=== PATIENT | female | born 1940 | race Caucasian/White ===

== ENCOUNTER 2016-11-07 06:57 | Outpatient (CLI) | payer MEDICARE ==
[2016-11-07 07:38] LABS: #Basophils 0.1 thou/uL (0.0-0.2); #Eosinphils 0.2 thou/uL (0.0-0.7); #Lymphocytes 1.8 thou/uL (1.20-3.40); #Monocytes 0.6 thou/uL (0.11-0.59); %Basophils 1.8 % (0.0-1.0); %Eosinophils 3.3 % (0.0-10.0); %Lymphocytes 32.2 % (21.0-51.0); %Monocytes 10.4 % (0.0-10.0); %Neutrophils 52.4 % (42.0-75.0); Hemoglobin 16.5 g/dL (12.0-16.0); Mean Corpuscular HGB CONC 32.2 g/dL (32.0-36.0); Mean Corpuscular Hemoglobin 31.5 pg (27.0-31.0); Mean Corpuscular Volume 97.6 fl (81.0-99.0); Mean Platelet Volume 8.2 fL (7.4-10.4); Platelet Count 211 thou/uL (130-400); RBC Distribution Width 12.9 % (11.5-14.5); Red Blood Cell (RBC) Count 5.25 mill/uL (4.20-5.40); White Blood Cell (WBC) Count 5.7 thou/uL (4.8-10.8)
[2016-11-07 07:52] LABS: ALT (SGPT) 8 U/L (0-55); AST (SGOT) 16 U/L (5-34); Albumin 3.7 g/dL (3.4-4.8); Alkaline Phosphatase 89 U/L (40-150); Anion Gap 11 mmol/L (10-20); BUN (Urea Nitrogen) 16 mg/dL (9.8-20.1); Bilirubin, Total 0.9 mg/dL (0.2-1.2); Calc. Creatinine Clearance 0 mL/min (70-130); Calcium 9.5 mg/dL (7.8-10.44); Carbon Dioxide 31 mmol/L (23-31); Cardiac Risk 3.2 (Less than 4.5); Chloride 102 mmol/L (98-107); Cholesterol 193 mg/dL (< 200 Desired); Estimated GFR-MDRD 60; Globulin 2.5 g/dL (2.4-3.5); Glucose 91 mg/dL (83-110); HDL Cholesterol 60 mg/dL (>60 Neg Risk); LDL Cholesterol, Calculated 113 mg/dL; Protein, Total 6.2 g/dL (5.8-8.1); Sodium 140 mmol/L (136-145); Triglycerides 100 mg/dL (Less than 150)
== END 2016-11-07 06:58 ==
LOC: MADLABBHPM 06:57
PROVIDERS: ATTEND Family Medicine
DX: E03.9 Hypothyroidism, unspecified (principal); I25.10 Atherosclerotic heart disease of native coronary artery without angina pectoris; I10 Essential (primary) hypertension
CPT/HCPCS: 36415; 80053; 80061; 84443; 85025

== ENCOUNTER 2016-12-10 13:36 | Outpatient (CLI) | payer MEDICARE ==
[2016-12-10 14:22] LABS: Free T4 (Free Thyroxine) 1.09 ng/dL (0.70-1.48)
[2016-12-10 17:54] LABS: Free T3 2.54 pg/mL (1.71-3.71)
== END 2016-12-10 13:37 | disposition home or self-care (01) ==
LOC: MADLAB 13:36
PROVIDERS: ATTEND Specialist
DX: E03.9 Hypothyroidism, unspecified (principal); E03.4 Atrophy of thyroid (acquired)
CPT/HCPCS: 36415; 84439; 84481

== ENCOUNTER 2017-01-06 06:36 | Emergency (ER) | payer MEDICARE ==
[2017-01-06] MEDS ORDERED: Fentanyl 100 MCG/2 ML VIAL ONE (07:15)
[2017-01-06] MEDS ORDERED: Ondansetron HCl/PF 4 MG/2 ML Vial ONE (07:16)
[2017-01-06 07:23] LABS: #Eosinphils 0.1 thou/uL (0.0-0.7); #Lymphocytes 0.5 thou/uL (1.20-3.40); #Monocytes 0.3 thou/uL (0.11-0.59); #Neutrophils 9.4 thou/uL (1.40-6.50); %Basophils 0.4 % (0.0-1.0); %Eosinophils 0.8 % (0.0-10.0); %Lymphocytes 4.5 % (21.0-51.0); %Monocytes 2.5 % (0.0-10.0); %Neutrophils 91.8 % (42.0-75.0); Hemoglobin 16.6 g/dL (12.0-16.0); Mean Corpuscular HGB CONC 31.8 g/dL (32.0-36.0); Mean Corpuscular Hemoglobin 30.9 pg (27.0-31.0); Mean Corpuscular Volume 97.2 fl (81.0-99.0); Mean Platelet Volume 7.8 fL (7.4-10.4); Platelet Count 207 thou/uL (130-400); RBC Distribution Width 13.2 % (11.5-14.5); Red Blood Cell (RBC) Count 5.38 mill/uL (4.20-5.40); White Blood Cell (WBC) Count 10.2 thou/uL (4.8-10.8)
[2017-01-06 07:35] LABS: ALT (SGPT) 14 U/L (0-55); AST (SGOT) 18 U/L (5-34); Albumin 3.7 g/dL (3.4-4.8); Alkaline Phosphatase 84 U/L (40-150); Anion Gap 13 mmol/L (10-20); BUN (Urea Nitrogen) 16 mg/dL (9.8-20.1); Bilirubin, Total 1.2 mg/dL (0.2-1.2); Calc. Creatinine Clearance 0 mL/min (70-130); Calcium 9.3 mg/dL (7.8-10.44); Carbon Dioxide 26 mmol/L (23-31); Chloride 104 mmol/L (98-107); Estimated GFR-MDRD 63; Globulin 2.5 g/dL (2.4-3.5); Glucose 115 mg/dL (83-110); Lipase 34 U/L (8-78); Potassium 4.5 mmol/L (3.5-5.1); Protein, Total 6.2 g/dL (5.8-8.1); Sodium 138 mmol/L (136-145)
[2017-01-06] MEDS ORDERED: Sodium Chloride 0.9% 1,000 ML BAG ONE (09:16)
== END 2017-01-06 08:25 | disposition home or self-care (01) ==
LOC: MADERS 06:36
DX: R11.2 Nausea with vomiting, unspecified (principal); R19.7 Diarrhea, unspecified; E78.5 Hyperlipidemia, unspecified; I10 Essential (primary) hypertension; F17.210 Nicotine dependence, cigarettes, uncomplicated; Z79.82 Long term (current) use of aspirin; Z79.899 Other long term (current) drug therapy
CPT/HCPCS: 36415; 80053; 83690; 85025; 96361; 96374; 96375; J2405; J3010; J7050

== ENCOUNTER 2017-01-07 18:40 | Emergency (ER) | payer MEDICARE ==
[~2017-01-07 18:40] MED LIST: Sodium Chloride 0.9% 1,000 ML BAG ONE; Sodium Chloride 0.9% 100 ML BAG ONE
[2017-01-07] MEDS ORDERED: Ondansetron HCl/PF 4 MG/2 ML Vial ONE (19:51)
[2017-01-07 19:52] LABS: Band 1 % (5-11); Eosinophils 3 % (0-10); Lymphocytes 9 % (21-51); MDiff Complete? YES; Mean Corpuscular HGB CONC 32.8 g/dL (32.0-36.0); Mean Corpuscular Hemoglobin 31.5 pg (27.0-31.0); Mean Corpuscular Volume 96.2 fl (81.0-99.0); Mean Platelet Volume 7.9 fL (7.4-10.4); Monocytes 4 % (0-10); Neutrophil 74 % (42-75); PLT Morphology Comment Appears Adequate; Platelet Count 193 thou/uL (130-400); RBC Distribution Width 12.8 % (11.5-14.5); RBC Morphology Normal; Reactive Lymphocytes 9 % (0-10); Red Blood Cell (RBC) Count 5.07 mill/uL (4.20-5.40); White Blood Cell (WBC) Count 4.2 thou/uL (4.8-10.8)
[2017-01-07 19:54] LABS: ALT (SGPT) 18 U/L (0-55); AST (SGOT) 28 U/L (5-34); Albumin 3.4 g/dL (3.4-4.8); Alkaline Phosphatase 76 U/L (40-150); Anion Gap 13 mmol/L (10-20); BUN (Urea Nitrogen) 14 mg/dL (9.8-20.1); Bilirubin, Total 0.7 mg/dL (0.2-1.2); Calc. Creatinine Clearance 0 mL/min (70-130); Calcium 8.9 mg/dL (7.8-10.44); Carbon Dioxide 26 mmol/L (23-31); Chloride 102 mmol/L (98-107); Estimated GFR-MDRD 55; Globulin 2.4 g/dL (2.4-3.5); Glucose 94 mg/dL (83-110); Lipase 17 U/L (8-78); Protein, Total 5.8 g/dL (5.8-8.1); Sodium 137 mmol/L (136-145)
[2017-01-07 19:55] LABS: CKMB 4.3 ng/mL (0-6.6); Troponin I 0.035 ng/mL (< 0.028)
[2017-01-07 21:28] LABS: Bilirubin Negative (Negative); Blood, Urine Negative (Negative); Clarity Clear (Clear); Glucose, Urine (Dipstick) Negative (Negative); Leukocyte Negative (Negative); Nitrite Negative (Negative); Protein, Urine (Dipstick) Negative (Neg-Trace); Urobilinogen 0.2 mg/dL (0.2-1.0); pH, Urine 5.5 (5.0-9.0)
[2017-01-07] MEDS ORDERED: Pantoprazole 40 MG VIAL ONE (21:34)
[2017-01-07] MEDS ORDERED: Piperacillin/Tazobactam 3.375 GM VIAL ONE (21:34)
--- NOTE | 2017-01-07 21:55 | RAD ---
KUB AND UPRIGHT: 01/07/17 HISTORY: Abdominal pain. COMPARISON: Chest x-ray of 08/29/16. There is air in both small and large bowel without definite obstruction. No free air. Postop cholecy stectomy changes are seen. PA CHEST: Heart size is enlarged. There are chronic lung changes seen. Pleural and parenchymal changes in the right apex are stable. IMPRESSION: No acute findings. POS: [facility]
== END 2017-01-08 00:05 | disposition short-term general hospital (02) ==
LOC: MADERS 18:40
DX: I25.10 Atherosclerotic heart disease of native coronary artery without angina pectoris (principal); R10.9 Unspecified abdominal pain; R19.7 Diarrhea, unspecified; E78.5 Hyperlipidemia, unspecified; I10 Essential (primary) hypertension; F17.210 Nicotine dependence, cigarettes, uncomplicated; Z79.899 Other long term (current) drug therapy; Z79.82 Long term (current) use of aspirin
CPT/HCPCS: 36415; 51701; 74022; 80053; 81003; 82553; 83690; 84484; 85025; 93005; 96361; 96365; 96375; 96376; A4353; C9113; J2270; J2405; J2543; J7050

== ENCOUNTER 2017-01-24 20:06 | Emergency (ER) | payer MEDICARE ==
[2017-01-24] MEDS ORDERED: cloNIDine HCl 0.1 MG TAB ONE (21:26)
== END 2017-01-24 22:05 | disposition home or self-care (01) ==
LOC: MADERS 20:06
DX: I10 Essential (primary) hypertension (principal); I25.2 Old myocardial infarction; E78.5 Hyperlipidemia, unspecified; J42 Unspecified chronic bronchitis; F17.210 Nicotine dependence, cigarettes, uncomplicated; Z79.82 Long term (current) use of aspirin; Z79.899 Other long term (current) drug therapy
CPT/HCPCS: 99283

== ENCOUNTER 2017-02-07 07:21 | Outpatient (CLI) | payer MEDICARE ==
[2017-02-07 08:34] LABS: #Basophils 0.1 thou/uL (0.0-0.2); #Eosinphils 0.3 thou/uL (0.0-0.7); #Lymphocytes 1.6 thou/uL (1.20-3.40); #Monocytes 0.6 thou/uL (0.11-0.59); #Neutrophils 3.9 thou/uL (1.40-6.50); %Basophils 1.4 % (0.0-1.0); %Lymphocytes 23.9 % (21.0-51.0); %Monocytes 9.1 % (0.0-10.0); %Neutrophils 60.6 % (42.0-75.0); Hemoglobin 16.8 g/dL (12.0-16.0); Mean Corpuscular HGB CONC 32.8 g/dL (32.0-36.0); Mean Corpuscular Volume 97.6 fl (81.0-99.0); Mean Platelet Volume 8.7 fL (7.4-10.4); Platelet Count 203 thou/uL (130-400); RBC Distribution Width 13.5 % (11.5-14.5); Red Blood Cell (RBC) Count 5.26 mill/uL (4.20-5.40); White Blood Cell (WBC) Count 6.5 thou/uL (4.8-10.8)
[2017-02-07 08:58] LABS: ALT (SGPT) 11 U/L (8-55); AST (SGOT) 17 U/L (5-34); Albumin 3.7 g/dL (3.4-4.8); Alkaline Phosphatase 96 U/L (40-150); Anion Gap 14 mmol/L (10-20); BUN (Urea Nitrogen) 11 mg/dL (9.8-20.1); Calc. Creatinine Clearance 0 mL/min (70-130); Calcium 9.6 mg/dL (7.8-10.44); Carbon Dioxide 28 mmol/L (23-31); Cardiac Risk 3.3 (Less than 4.5); Chloride 104 mmol/L (98-107); Cholesterol 194 mg/dl (< 200 Desired); Estimated GFR-MDRD 67; Globulin 2.8 g/dL (2.4-3.5); Glucose 88 mg/dL (83-110); HDL Cholesterol 59 mg/dL (>60 Neg Risk); LDL Cholesterol, Calculated 111 mg/dL; Protein, Total 6.5 g/dL (6.0-8.3); Sodium 142 mmol/L (136-145); Triglycerides 118 mg/dL (Less than 150)
== END 2017-02-07 07:22 ==
LOC: MADLABBHPM 07:21
PROVIDERS: ATTEND Family Medicine
DX: E03.9 Hypothyroidism, unspecified (principal); I25.10 Atherosclerotic heart disease of native coronary artery without angina pectoris
CPT/HCPCS: 80053; 80061; 84443; 85025

== ENCOUNTER 2017-10-16 15:30 | Emergency (ER) | payer MEDICARE ==
[2017-10-16] MEDS ORDERED: Amoxicillin/Potassium Clav 875 MG TAB ONE (16:13)
== END 2017-10-16 16:20 | disposition home or self-care (01) ==
LOC: MADERS 15:30
DX: J20.9 Acute bronchitis, unspecified (principal); Z79.899 Other long term (current) drug therapy; Z79.82 Long term (current) use of aspirin
CPT/HCPCS: 99283

== ENCOUNTER 2019-02-08 20:07 | Emergency (ER) | payer MEDICARE ==
[2019-02-08] MEDS ORDERED: Nitroglycerin 2% Ointment 1 INCH/1 GM Packet ONE (20:27)
[2019-02-08 20:31] LABS: #Basophils 0.1 thou/uL (0.0-0.2); #Eosinphils 0.2 thou/uL (0.0-0.7); #Lymphocytes 1.6 thou/uL (1.20-3.40); #Monocytes 0.9 thou/uL (0.11-0.59); #Neutrophils 5.5 thou/uL (1.40-6.50); %Basophils 1.5 % (0.0-1.0); %Eosinophils 2.3 % (0.0-10.0); %Lymphocytes 19.1 % (21.0-51.0); %Monocytes 10.7 % (0.0-10.0); %Neutrophils 66.4 % (42.0-75.0); Hemoglobin 16.8 g/dL (12.0-16.0); Mean Corpuscular HGB CONC 32.3 g/dL (32.0-36.0); Mean Corpuscular Hemoglobin 30.9 pg (27.0-31.0); Mean Corpuscular Volume 95.5 fL (78.0-98.0); Mean Platelet Volume 7.6 fL (7.4-10.4); Platelet Count 217 thou/uL (130-400); RBC Distribution Width 13.1 % (11.5-14.5); Red Blood Cell (RBC) Count 5.44 mill/uL (4.20-5.40); White Blood Cell (WBC) Count 8.3 thou/uL (4.8-10.8)
--- NOTE | 2019-02-08 20:48 | RAD ---
AP view chest. HISTORY: Chest pain AP view chest demonstrates sternotomy wires seen. Calcination of the aorta seen. The lungs are well a erated. Right-sided rib fractures seen. No evidence of acute intrathoracic abnormality seen. IMPRESSION: Calcination of the aorta.
[2019-02-08 20:49] LABS: ALT (SGPT) 11 U/L (8-55); AST (SGOT) 17 U/L (5-34); Albumin 3.8 g/dL (3.4-4.8); Alkaline Phosphatase 104 U/L (40-150); Anion Gap 12 mmol/L (10-20); BUN (Urea Nitrogen) 21 mg/dL (9.8-20.1); Bilirubin, Total 0.6 mg/dL (0.2-1.2); Calc. Creatinine Clearance 0 mL/min (70-130); Calcium 9.5 mg/dL (7.8-10.44); Carbon Dioxide 28 mmol/L (23-31); Chloride 101 mmol/L (98-107); Estimated GFR-MDRD 30; Globulin 3.2 g/dL (2.4-3.5); Glucose 100 mg/dL (83-110); Magnesium 1.9 mg/dL (1.6-2.6); Potassium 4.4 mmol/L (3.5-5.1); Sodium 137 mmol/L (136-145)
== END 2019-02-08 22:47 | disposition left against medical advice (07) ==
LOC: MADERS 20:07
DX: I20.0 Unstable angina (principal); I10 Essential (primary) hypertension; Z79.51 Long term (current) use of inhaled steroids; Z79.899 Other long term (current) drug therapy; Z79.82 Long term (current) use of aspirin
CPT/HCPCS: 71045; 80053; 83735; 83880; 84484; 85025; 93005

== ENCOUNTER 2020-01-11 14:31 | Emergency (ER) | payer MEDICARE ==
[~2020-01-11 14:31] MED LIST changes: +Iopamidol 370 76% 125 ML VIAL FS ONE; -Sodium Chloride 0.9% 1,000 ML BAG ONE; -Sodium Chloride 0.9% 100 ML BAG ONE
[2020-01-11 15:51] LABS: #Basophils 0.1 thou/uL (0.0-0.2); #Lymphocytes 1.1 thou/uL (1.20-3.40); #Monocytes 0.4 thou/uL (0.11-0.59); #Neutrophils 4.8 thou/uL (1.40-6.50); %Basophils 1.2 % (0.0-1.0); %Eosinophils 0.7 % (0.0-10.0); %Lymphocytes 17.1 % (21.0-51.0); %Monocytes 5.9 % (0.0-10.0); %Neutrophils 75.1 % (42.0-75.0); Hemoglobin 17.1 g/dL (12.0-16.0); Mean Corpuscular HGB CONC 31.3 g/dL (32.0-36.0); Mean Corpuscular Hemoglobin 30.6 pg (27.0-31.0); Mean Corpuscular Volume 97.9 fL (78.0-98.0); Mean Platelet Volume 7.9 fL (7.4-10.4); Platelet Count 230 thou/uL (130-400); RBC Distribution Width 12.8 % (11.5-14.5); Red Blood Cell (RBC) Count 5.57 mill/uL (4.20-5.40); White Blood Cell (WBC) Count 6.4 thou/uL (4.8-10.8)
[2020-01-11 16:00] LABS: INR-International Normal Ratio 0.9; Prothrombin Time 12.5 SEC (12.0-14.7)
[2020-01-11 16:11] LABS: ALT (SGPT) 12 U/L (8-55); AST (SGOT) 20 U/L (5-34); Albumin 3.8 g/dL (3.4-4.8); Alkaline Phosphatase 95 U/L (40-110); Anion Gap 18 mmol/L (10-20); BUN (Urea Nitrogen) 15 mg/dL (9.8-20.1); Calc. Creatinine Clearance 0 mL/min (70-130); Calcium 9.5 mg/dL (7.8-10.44); Carbon Dioxide 27 mmol/L (23-31); Chloride 97 mmol/L (98-107); Estimated GFR-MDRD 46; Globulin 2.9 g/dL (2.4-3.5); Glucose 100 mg/dL (83-110); Potassium 4.7 mmol/L (3.5-5.1); Protein, Total 6.7 g/dL (6.0-8.3); Sodium 137 mmol/L (136-145)
--- NOTE | 2020-01-11 17:18 | CT ---
CT BRAIN 01/11/20 PROVIDED CLINICAL HISTORY: Dizziness. FINDINGS: No comparisons. The ventricular system appears normal in size and morphology. There is no evidence for intracranial h emorrhage, or mass effect. Vascular calcifications are seen. The extra-cranial soft tissues and osse ous structures demonstrate no acute abnormality. IMPRESSION: No evidence for intracranial hemorrhage or mass effect. POS: [facility]
[2020-01-11] MEDS ORDERED: Meclizine HCl 25 MG TAB ONE ×2 (17:22→17:40)
[2020-01-11] MEDS ORDERED: Sodium Chloride 0.9% 500 ML ONE (17:22)
--- NOTE | 2020-01-11 17:40 | CT ---
CTA HEAD WITH CONTRAST 01/11/20 Axial tomograms obtained through the head following a cerebral angio protocol with multiplanar recons truction and 3D postprocessing. INDICATION: Dizziness. FINDINGS: The intracranial internal carotid arteries are patent. There is atherosclerotic calcifications seen i n the cavernous portions of both ICAs. 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 There is no secondary evidence of carotid cavernous fistula. The bilateral carotid terminus appears symmetric. Both middle cerebral arteries are patent and symmet mark. Anterior cerebral arteries are patent and symmetric. Basilar artery is tortuous but patent. Atherosclerotic calcifications are present. Both posterior cer ebral arteries appear patent and symmetric. IMPRESSION: 1. 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 There is no se condary evidence of a carotid cavernous fistula identified. Recommend clinical correlation and consid er a catheter angiogram to further evaluate. 2. There is no evidence of proximal cerebral artery stenosis or occlusion. CTA NECK: Axial tomograms obtained with multiplanar reconstruction and 3D postprocessing. INDICATIONS: Dizziness. FINDINGS: Atherosclerotic calcification at the arch at the origin of the arch vessels without evidence of steno sis. Both common carotid arteries are patent. There is moderate atherosclerotic change in the right c ommon carotid without hemodynamically significant stenosis. Atherosclerotic calcification is seen in both bulbs. No evidence of hemodynamically significant steno sis seen in either internal carotid artery. The vertebral arteries are patent and symmetric. Review of soft tissues reveal asymmetric pleural thickening and density in the right lung apex. Consi sunny elective follow-up CT chest to further evaluate. There appear to be severe chronic lung changes i n the visualized lung parenchyma in the upper lung [place]. IMPRESSION: 1. Atherosclerotic changes seen in both extracranial carotid arteries without evidence of hemody namically significant stenosis. 2. No evidence of significant chronic lung changes with asymmetric pleural thickening in the rig ht apex. Refer to recent CT chest exam of 01/11/20. POS: [facility]
[2020-01-11 17:42] LABS: Bilirubin Negative (Negative); Blood, Urine Negative (Negative); Clarity Clear (Clear); Glucose, Urine (Dipstick) Negative (Negative); Leukocyte Negative (Negative); Nitrite Negative (Negative); Protein, Urine (Dipstick) Negative (Neg-Trace); Urobilinogen 0.2 mg/dL (Less than 2)
[2020-01-11] MEDS ORDERED: Ondansetron PF 4 MG/2 ML Vial ONE (18:18)
== END 2020-01-11 18:25 | disposition home or self-care (01) ==
LOC: MADERS 14:31
DX: R42 Dizziness and giddiness (principal); R11.0 Nausea; R53.1 Weakness; I10 Essential (primary) hypertension; Z79.82 Long term (current) use of aspirin; Z79.899 Other long term (current) drug therapy
CPT/HCPCS: 70450; 70496; 70498; 80053; 81003; 85025; 85610; 93005; 96361; 96374; J2405; J7030; Q9967

== ENCOUNTER 2020-10-19 22:42 | Emergency (ER) | payer MEDICARE ==
[2020-10-19] MEDS ORDERED: Nitroglycerin 2% Ointment 1 INCH/1 GM Packet ONE (23:12)
[2020-10-19] MEDS ORDERED: methylPREDNISolone Sod Succ/PF 125 MG/2 ML VIAL ONE (23:12)
[2020-10-19] MEDS ORDERED: Aspirin Chewable 81 MG TAB ONE (23:12)
[2020-10-19 23:13] LABS: #Basophils 0.1 thou/uL (0.0-0.2); #Eosinphils 0.2 thou/uL (0.0-0.7); #Lymphocytes 1.1 thou/uL (1.20-3.40); #Monocytes 0.6 thou/uL (0.11-0.59); #Neutrophils 4.9 thou/uL (1.40-6.50); %Basophils 1.5 % (0.0-1.0); %Eosinophils 3.5 % (0.0-10.0); %Lymphocytes 15.8 % (21.0-51.0); %Monocytes 9.1 % (0.0-10.0); %Neutrophils 70.1 % (42.0-75.0); Hemoglobin 17.1 g/dL (12.0-16.0); Mean Corpuscular HGB CONC 31.8 g/dL (32.0-36.0); Mean Corpuscular Hemoglobin 30.6 pg (27.0-31.0); Mean Corpuscular Volume 96.2 fL (78.0-98.0); Mean Platelet Volume 7.9 fL (7.4-10.4); Platelet Count 237 thou/uL (130-400); RBC Distribution Width 12.2 % (11.5-14.5); Red Blood Cell (RBC) Count 5.58 mill/uL (4.20-5.40); White Blood Cell (WBC) Count 6.9 thou/uL (4.8-10.8)
[2020-10-19 23:24] LABS: ALT (SGPT) 11 U/L (8-55); AST (SGOT) 16 U/L (5-34); Albumin 3.7 g/dL (3.4-4.8); Alkaline Phosphatase 91 U/L (40-110); Anion Gap 14 mmol/L (10-20); BUN (Urea Nitrogen) 16 mg/dL (9.8-20.1); Bilirubin, Total 0.6 mg/dL (0.2-1.2); Calc. Creatinine Clearance 0 mL/min (70-130); Calcium 9.2 mg/dL (7.8-10.44); Carbon Dioxide 31 mmol/L (23-31); Chloride 99 mmol/L (98-107); Globulin 2.7 g/dL (2.4-3.5); Glucose 96 mg/dL (83-110); Potassium 4.1 mmol/L (3.5-5.1); Protein, Total 6.4 g/dL (5.8-8.1); Sodium 140 mmol/L (136-145)
--- NOTE | 2020-10-19 23:54 | RAD ---
EXAM: CHEST ONE VIEW HISTORY: Dyspnea. History of lung cancer. Partial right lung removal. History of breast cancer and bilateral m astectomy COMPARISON: 02/08/2019 FINDINGS: Postoperative changes related to median sternotomy are seen. Surgical clips are seen overlying the ri ght paramediastinal location similar to prior exam. The cardiac silhouette is magnified by projection. Vascular calcifications are seen in the thoracic aorta. Pulmonary nodule is seen within the left midlung zone which was seen on CT thorax on 08/24/2020. No a dditional pulmonary nodule is appreciated. Left lung is otherwise clear. There is evidence of postoperative changes right hemithorax with rib deformities and generalized volu me loss right hemithorax related to history of prior right lobectomy. Prominent pleural and parenchymal scarring right lung apex and right lung base are again seen findings could be related to combination of postoperative and postradiation changes. No other interval change. IMPRESSION: 1. Pulmonary nodule left midlung zone seen on prior CT thorax. 2. Stable chronic changes right hemithorax likely related to postoperative changes and possibly postr adiation changes.
[2020-10-20 00:44] LABS: SARS-CoV-2 NAA Rapid Test Not Detected (NotDetected)
== END 2020-10-20 01:15 | disposition short-term general hospital (02) ==
LOC: MADERS 22:42
DX: J44.1 Chronic obstructive pulmonary disease with (acute) exacerbation (principal); R07.9 Chest pain, unspecified; R79.1 Abnormal coagulation profile; C34.90 Malignant neoplasm of unspecified part of unspecified bronchus or lung; I10 Essential (primary) hypertension; F17.200 Nicotine dependence, unspecified, uncomplicated; Z79.82 Long term (current) use of aspirin; Z79.899 Other long term (current) drug therapy
CPT/HCPCS: 71045; 80053; 83880; 84484; 85025; 85379; 93005; 94640; 94760; 96374; J2930; J7620; U0002

== ENCOUNTER 2020-11-06 11:01 | Emergency (ER) | payer MEDICARE | END 2020-11-06 12:30 | disposition home or self-care (01) | LOC: MADERS 11:01 | DX: I82.621 Acute embolism and thrombosis of deep veins of right upper extremity (principal); I10 Essential (primary) hypertension; J44.9 Chronic obstructive pulmonary disease, unspecified; Z85.118 Personal history of other malignant neoplasm of bronchus and lung; Z85.3 Personal history of malignant neoplasm of breast; Z79.82 Long term (current) use of aspirin; Z79.899 Other long term (current) drug therapy | CPT/HCPCS: 99283 ==

== ENCOUNTER 2020-11-15 18:43 | Emergency (ER) | payer MEDICARE ==
[2020-11-15 19:21] LABS: #Basophils 0.1 thou/uL (0.0-0.2); #Eosinphils 0.2 thou/uL (0.0-0.7); #Monocytes 0.7 thou/uL (0.11-0.59); #Neutrophils 4.6 thou/uL (1.40-6.50); %Basophils 1.5 % (0.0-1.0); %Eosinophils 2.8 % (0.0-10.0); %Lymphocytes 15.7 % (21.0-51.0); Hemoglobin 17.4 g/dL (12.0-16.0); Mean Corpuscular HGB CONC 32.2 g/dL (32.0-36.0); Mean Corpuscular Hemoglobin 31.2 pg (27.0-31.0); Mean Corpuscular Volume 96.9 fL (78.0-98.0); Mean Platelet Volume 7.4 fL (7.4-10.4); Platelet Count 234 thou/uL (130-400); RBC Distribution Width 12.7 % (11.5-14.5); Red Blood Cell (RBC) Count 5.59 mill/uL (4.20-5.40); White Blood Cell (WBC) Count 6.6 thou/uL (4.8-10.8)
[2020-11-15 19:23] LABS: INR-International Normal Ratio 1.2; PTT 31.3 sec (22.9-36.1); Prothrombin Time 15.2 sec (12.0-14.7)
[2020-11-15 19:25] LABS: D-Dimer Test 0.56 *mcg/mL (0.27-0.43)
[2020-11-15 19:35] LABS: ALT (SGPT) 10 U/L (8-55); AST (SGOT) 16 U/L (5-34); Albumin 3.8 g/dL (3.4-4.8); Alkaline Phosphatase 100 U/L (40-110); Anion Gap 14 mmol/L (10-20); BUN (Urea Nitrogen) 17 mg/dL (9.8-20.1); Bilirubin, Total 0.8 mg/dL (0.2-1.2); Calc. Creatinine Clearance 0 mL/min (70-130); Calcium 9.3 mg/dL (7.8-10.44); Carbon Dioxide 27 mmol/L (23-31); Chloride 98 mmol/L (98-107); Globulin 2.7 g/dL (2.4-3.5); Glucose 101 mg/dL (83-110); Potassium 4.3 mmol/L (3.5-5.1); Protein, Total 6.5 g/dL (5.8-8.1); Sodium 135 mmol/L (136-145)
--- NOTE | 2020-11-15 21:07 | CT ---
CT PULMONARY ANGIOGRAM WITH IV CONTRAST AND 3-D POSTPROCESSING: HISTORY:Right lung cancer. Dyspnea COMPARISON: CT chest dated 08/24/2020 FINDINGS: There is good contrast opacification of the pulmonary arterial vasculature without filling defects to suggest pulmonary embolism. The thoracic aorta is ectatic and well opacified without aneurysm or dissection. Vascular calcificati ons are present. No pleural or pericardial effusions are seen. There is stable scarring in the right lung apex with peripheral pleural thickening. Emphysematous daljit nges in the lung [place] are again seen. No pneumothoraces, new areas of consolidation or new lung nodules are noted. 15 mm left upper lobe lung nodule is stable. Calcified granulomas again seen. There are degenerative changes in the spine. Old right-sided rib fractures again seen. Upper abdominal tomograms demonstrate changes of cholecystectomy. IMPRESSION: No CT evidence of pulmonary embolism.
[2020-11-15 21:31] LABS: Bilirubin Negative (Negative); Blood, Urine Negative (Negative); Clarity Clear (Clear); Glucose, Urine (Dipstick) Negative (Negative); Ketone, Urine Negative (Negative); Leukocyte Negative (Negative); Nitrite Negative (Negative); Protein, Urine (Dipstick) Negative (Neg-Trace); Specific Gravity, Urine 1.015 (1.005-1.030)
[2020-11-15] MEDS ORDERED: cefTRIAXone\\ROCEPHIN 2 GM VIAL ONE (21:43)
[2020-11-15] MEDS ORDERED: methylPREDNISolone Sod Succ/PF 125 MG/2 ML VIAL ONE (22:00)
[2020-11-15 23:28] LABS: SARS-CoV-2 NAA Rapid Test Not Detected (NotDetected)
== END 2020-11-15 23:56 | disposition short-term general hospital (02) ==
LOC: MADERS 18:43
DX: J44.1 Chronic obstructive pulmonary disease with (acute) exacerbation (principal); I10 Essential (primary) hypertension; F17.200 Nicotine dependence, unspecified, uncomplicated; Z85.118 Personal history of other malignant neoplasm of bronchus and lung; Z79.82 Long term (current) use of aspirin; Z79.899 Other long term (current) drug therapy; Z79.01 Long term (current) use of anticoagulants
CPT/HCPCS: 0240U; 71275; 80053; 81003; 83605; 83880; 84484; 85025; 85379; 85610; 85730; 87040; 93005; 94760; 36415; 96374; 96375; J0696; J2930; J7620; Q9967

== ENCOUNTER 2021-09-07 22:07 | Emergency (ER) | payer MEDICARE ==
[2021-09-07] MEDS ORDERED: Orphenadrine Citrate 60 MG/2 ML VIAL ONE (22:44)
[2021-09-07] MEDS ORDERED: Ketorolac Tromethamine 30 MG/ML VIAL ONE (22:44)
== END 2021-09-08 00:08 | disposition home or self-care (01) ==
LOC: MADERS 22:07
DX: S29.012A Strain of muscle and tendon of back wall of thorax, initial encounter (principal); J44.9 Chronic obstructive pulmonary disease, unspecified; I10 Essential (primary) hypertension; Z87.891 Personal history of nicotine dependence; Z79.82 Long term (current) use of aspirin; Z79.899 Other long term (current) drug therapy
CPT/HCPCS: 71045; 96372; J1885; J2360

== ENCOUNTER 2021-09-09 21:20 | Emergency (ER) | payer MEDICARE ==
[2021-09-09] MEDS ORDERED: Morphine 4 MG/ML VIAL ONE (22:12)
[2021-09-09] MEDS ORDERED: Ketorolac Tromethamine 30 MG/ML VIAL ONE (22:12)
[2021-09-09] MEDS ORDERED: Dexamethasone 4 MG TAB ONE (23:18)
[2021-09-09] MEDS ORDERED: Diazepam 5 MG TAB ONE (23:18)
== END 2021-09-09 23:28 | disposition home or self-care (01) ==
LOC: MADERS 21:20
DX: M62.830 Muscle spasm of back (principal); J44.9 Chronic obstructive pulmonary disease, unspecified; I10 Essential (primary) hypertension; Z87.891 Personal history of nicotine dependence; Z79.82 Long term (current) use of aspirin; Z79.899 Other long term (current) drug therapy
CPT/HCPCS: 74176; 96372; J1885; J2270; J8540

== ENCOUNTER 2021-10-29 12:10 | Outpatient (CLI) | payer MEDICARE ==
[2021-10-29] MEDS ORDERED: Iopamidol 370 76% 100 ML VIAL ONE (13:33)
== END 2021-10-29 12:11 | disposition home or self-care (01) ==
LOC: MADCT 12:10
PROVIDERS: ATTEND Family Medicine
DX: C34.90 Malignant neoplasm of unspecified part of unspecified bronchus or lung (principal); R10.9 Unspecified abdominal pain; C79.51 Secondary malignant neoplasm of bone; R91.1 Solitary pulmonary nodule; J39.8 Other specified diseases of upper respiratory tract
CPT/HCPCS: 36415; 71260; 74177; 82565; Q9967